=== PATIENT | female | born 1950 | race Caucasian/White ===

== ENCOUNTER → 2017-08-08 | Outpatient (CLI) | payer MEDICARE, OTHER | LOC: MC.RAD 16:40 | DX: Z12.31 Encounter for screening mammogram for malignant neoplasm of breast (principal) ==

== ENCOUNTER → 2018-10-14 | Outpatient (CLI) | payer MEDICARE, OTHER | LOC: MC.RAD 16:54 | DX: Z12.31 Encounter for screening mammogram for malignant neoplasm of breast (principal) ==

== ENCOUNTER → 2019-11-10 | Outpatient (CLI) | payer MEDICARE, OTHER | LOC: MC.RAD 16:15 | DX: Z12.31 Encounter for screening mammogram for malignant neoplasm of breast (principal) ==

== ENCOUNTER → 2020-11-11 | Outpatient (CLI) | payer MEDICARE | LOC: MC.RAD 10:45 | DX: Z12.31 Encounter for screening mammogram for malignant neoplasm of breast (principal) ==

== ENCOUNTER → 2021-11-21 | Outpatient (CLI) | payer MEDICARE | LOC: MC.RAD 11:02 | DX: Z12.31 Encounter for screening mammogram for malignant neoplasm of breast (principal) ==